=== PATIENT | female | born 1950 | race Two or more races ===

== ENCOUNTER 2016-10-06 06:14 | Emergency (ER) | payer MEDICARE, OTHER ==
[~2016-10-06] VITALS: Ht 152.4 cm; Wt 63.6 kg
[2016-10-06] MEDS ORDERED: PRED10 PO (06:27)
[2016-10-06] MEDS ORDERED: GABA-531 PO (06:27)
[2016-10-06 07:42] VITALS: BP 136/84
[2016-10-06] MEDS ORDERED: DEXAMETHASONE SOD PHOS 4 MG/ML 5 ML VIAL IM ONE (08:15)
[2016-10-06] MEDS ORDERED: OxyCODONE HCL/ACETAMINOPHEN 5-325 MG TABLET PO ONE (08:15)
== END 2016-10-06 08:34 | disposition home or self-care (01) ==
LOC: EMS 06:16
DX: M06.9 Rheumatoid arthritis, unspecified (principal); M13.0 Polyarthritis, unspecified
CPT/HCPCS: 96372; 99283; J1100